=== PATIENT | male | born 1990 | race Caucasian/White ===

== ENCOUNTER → 2018-07-19 | Outpatient (CLI) | payer BC ==
[~2018-07-19] MED LIST: OXYC1TAB87 PO
--- NOTE | 2018-07-19 10:11 | Diagnostic Imaging Report ---
PROCEDURE: MRI left upper extremity without contrast. TECHNIQUE: Multiplanar, multisequence non contrast-enhanced MRI of the left upper extremity was accomplished. INDICATION: Left shoulder pain. COMPARISON: None. FINDINGS: There is marked abnormal T2 signal throughout the visualized supraspinatus and infraspinatus muscles. The teres minor and subscapularis are spared. No evidence of a rotator cuff tear. The biceps tendons are intact. The glenoid labrum is normal on this non-arthrographic examination. No substantial chondromalacia in the left glenohumeral joint. No degenerative change in the acromioclavicular joint. No soft tissue mass or fluid collections. Normal bone marrow signal. IMPRESSION: Markedly abnormal T2 signal in the supraspinatus and infraspinatus muscles without tendon tear or atrophy. 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 No space-occupying lesion suspicious for neurologic compression of the suprascapular notch or quadrilateral space. Dictated by: Dictated on workstation # [id number]
== END ==
LOC: RAD 09:02
PROVIDERS: ATTEND Nurse Practitioner
DX: M75.112 Incomplete rotator cuff tear or rupture of left shoulder, not specified as traumatic (principal)
CPT/HCPCS: 73221

== ENCOUNTER 2019-01-23 11:33 | Outpatient (RCR) | payer BC | END 2019-04-23 | disposition still patient (30) | LOC: LAB 11:33 | PROVIDERS: ATTEND Obstetrics & Gynecology | DX: N46.9 Male infertility, unspecified (principal) | CPT/HCPCS: 89320 ==

== ENCOUNTER 2020-03-10 08:45 | Outpatient (RCR) | payer BC ==
[~2020-03-10] VITALS: Ht 185.5 cm; Wt 79.5 kg
[~2020-03-10 08:45] MED LIST changes: +OMEP20TA33 PO
== END 2020-03-10 16:13 | disposition home or self-care (01) ==
LOC: PREOP 08:45
PROVIDERS: ATTEND Surgery
DX: Z01.818 Encounter for other preprocedural examination (principal); Z11.59 Encounter for screening for other viral diseases; K29.50 Unspecified chronic gastritis without bleeding
CPT/HCPCS: 87635